=== PATIENT | male | born 1970 | race Caucasian/White ===

== ENCOUNTER 2021-02-02 20:59 | Emergency (ER) | payer MEDICAID ==
[~2021-02-02] VITALS: Ht 154.9 cm; Wt 103.4 kg
[2021-02-02 21:17] VITALS: BP 146/94
[2021-02-02 22:13] LABS: BASOPHILS # (AUTO) 0.1 K/uL (0.00-0.22); BASOPHILS % (AUTO) 0.6 % (0.0-2.0); EOSINOPHILS # (AUTO) 0.1 K/uL (0-0.4); EOSINOPHILS % (AUTO) 1.6 % (0.0-4.0); HEMATOCRIT 45.7 % (36-52); HEMOGLOBIN 16.1 g/dL (12.0-18.0); LYMPHOCYTES # (AUTO) 1.9 K/uL (2.0-11.5); LYMPHOCYTES % (AUTO) 21.5 % (20.5-51.1); MEAN CORPUSCULAR HEMOGLOBIN 31 pg (27-31); MEAN CORPUSCULAR HGB CONC 35 g/dL (33-37); MEAN CORPUSCULAR VOLUME 88.6 fL (80-94); MONOCYTES # (AUTO) 0.9 K/uL (0.8-1.0); MONOCYTES % (AUTO) 9.7 % (1.7-9.3); NEUTROPHILS % (AUTO) 66.6 % (42.2-75.2); PLATELET COUNT (AUTO) 306 K/uL (140-450); RED BLOOD CELL COUNT(AUTO) 5.16 MIL/uL (4.20-6.10); RED CELL DISTRIBUTION WIDTH 12.9 % (11.6-13.7)
--- NOTE | 2021-02-02 22:21 | NUR ---
PT TAKEN TO CT VIA W/C
[2021-02-02 22:38] LABS: ANION GAP 12.8 (8-16); CARBON DIOXIDE 25.3 mmol/L (21-32); CREATININE 1.1 mg/dL (0.6-1.3); POTASSIUM 4.1 mmol/L (3.5-5.1); TOTAL BILIRUBIN 0.8 mg/dL (0.0-1.0)
--- NOTE | 2021-02-02 23:55 | NUR ---
PT GIVEN WATER TO PROVIDE URINE.
[2021-02-03 00:18] LABS: BARBITURATE, URINE NEGATIVE ng/ml (NEG <=200); BENZODIAZEPINE, URINE NEGATIVE ng/mL (NEG <=200)
[2021-02-03 00:19] LABS: CANNABINOID, URINE NEGATIVE ng/mL (NEG <=50); COCAINE, URINE NEGATIVE ng/mL (NEG <=300); OPIATE, URINE NEGATIVE ng/mL (NEG <=2000); PHENCYCLIDINE SCREEN,URINE NEGATIVE ng/mL (NEG <=25)
--- NOTE | 2021-02-03 00:37 | NUR ---
Patient discharged with v/s stable. Written and verbal after care instructions given and explained. Patient verbalized understanding. Ambulatory with steady gait. ARMBAND REMOVED. All questions addressed prior to discharge. Advised to follow up with PMD.
--- NOTE | 2021-02-03 01:12 | NUR ---
The patient's care was reviewed and supervised by MAXIMO LEMA RN.
== END 2021-02-03 00:37 | disposition home or self-care (01) ==
LOC: MED 20:59
DX: R55 Syncope and collapse (principal); F15.10 Other stimulant abuse, uncomplicated
CPT/HCPCS: 36415; 70450; 71045; 80053; 80305; 83880; 84484; 85025; 93005; 99285; G0482; Q0092